=== PATIENT | female | born 1975 | race Caucasian/White ===

== ENCOUNTER 2017-09-26 17:59 | Emergency (ER) | END 2017-09-26 22:13 | disposition home or self-care (01) ==

== ENCOUNTER 2018-03-07 15:19 | Emergency (ER) | payer BC ==
[~2018-03-07] VITALS: Ht 177.8 cm; Wt 101.6 kg
[~2018-03-07 15:19] MED LIST: BECL8.7A5 IH; CARI350T PO; CEPH500C PO; GABA400C PO; IBUP-1542 PO; NITR-58 PO; NORT10CA3 PO; OMEP20TA42 PO; OXYC-279 PO; RANI300T PO; SULF-182 PO; TRAZ150T65 PO; VENL225T PO
[2018-03-07 15:28] VITALS: Ht 177.8 cm; Wt 101.6 kg
[2018-03-07] MEDS ORDERED: ONDANSETRON 4 MG INJ IV STA ×2 (17:37→19:27)
[2018-03-07] MEDS ORDERED: FAMOTIDINE 20 MG INJ IV STA (17:37)
[2018-03-07] MEDS ORDERED: SOD CHLORIDE 0.9% 1,000 ML IV STA ×2 (17:37→19:27)
--- NOTE | 2018-03-07 19:32 | ERD ---
ER Documentation Chief Complaint Chief Complaint Complains of vomiting x 3 days (NOMI KO MD) HPI This is a 42-year-old female that recently underwent a gastric bypass February 01, [address] [facility] by Dr. Wolf. The patient indicates that for the past 3 days she has been unable to tolerate oral intake. She states she has been taking small sips of liquid but is unable to be taking any solid foods or soft foods. Anytime she attempts to eat anything she experiences emesis nonbloody nonbilious. She has not experienced any diarrhea. She has a postoperative appointment with her surgeon in 24 hours. She had no fevers or shaking or chills. She is experiencing epigastric abdominal discomfort. She states it is a burning-like sensation. She has been experiencing flatulence with no constipation. The patient also indicates that she recently was diagnosed with a urinary tract infection was given 5 George of Macrobid. However she states she finished this 2 days ago with no improvement of her symptoms. She also indicates she was experiencing emesis during that time of her taking the antibiotics of is concerned that she did not adequately absorb the antibiotics. She has a history of insulin-dependent diabetes but has been able to take her insulin without any difficulty. Denies any polyuria polydipsia. (NOMI KO MD) ROS All systems reviewed and are negative except as per history of present illness. (NOMI KO MD) Medications Home Meds Active Scripts Cephalexin* (Cephalexin* Susp) 250 Mg/5 Ml Susp.recon, 10 ML PO Q8 for 7 Days Prov:NOMI KO MD 03/07/18 Metoclopramide* (Reglan*) 10 Mg Tablet, 10 MG PO Q6 PRN for NAUSEA AND/OR VOMITING, #20 TAB Prov:NOMI KO MD 03/07/18 Ondansetron (Ondansetron Odt) 4 Mg Tab.rapdis, 4 MG PO Q6H PRN for NAUSEA AND/OR VOMITING, #20 TAB Prov:NOMI KO MD 03/07/18 Nitrofurantoin Monohyd Macrocr* (Macrobid*) 100 Mg Capsr, 100 MG PO BID for 7 D ays, CAP Prov:RADHA FOSTER 09/26/17 Ibuprofen* (Motrin*) 600 Mg Tab, 600 MG PO Q6, #30 TAB Prov:RADHA FOSTER 09/26/17 Oxycodone HCl/Acetaminophen (Percocet 5-325 mg Tablet) 1 Each Tablet, 1 EACH PO Q6, #15 TAB Prov:RADHA FOSTER 09/26/17 Reported Medications Sulfamethoxazole-Trimethoprim* (Sulfamethoxazole-Trimethoprim* DS) 1 Tab Tablet, 1 TAB PO DAILY 03/14/11 Cephalexin* (Cephalexin*) 500 Mg Capsule, 500 MG PO QID 03/14/11 Venlafaxine Hcl* (Venlafaxine Hcl ER*) 225 Mg Tab.er.24, 225 MG PO DAILY 03/14/11 Omeprazole (Omeprazole) 20 Mg Tablet.dr, 20 MG PO DAILY 03/14/11 Ranitidine Hcl* (Ranitidine Hcl*) 300 Mg Tablet, 300 MG PO HS 03/14/11 Gabapentin* (Neurontin*) 400 Mg Capsule, 400 MG PO TID 03/14/11 Nortriptyline Hcl* (Pamelor*) 10 Mg Capsule, 10 MG PO DAILY 03/14/11 Beclomethasone Dip* (Qvar 80*) 7.3 Gm Inha, 7.3 GM IH BID prn 2 puffs 03/14/11 Carisoprodol* (Soma*) 350 Mg Tablet, 350 MG PO TID 09/16/10 Trazodone Hcl* (Trazodone Hcl*) 150 Mg Tablet, 150 MG PO DAILY 09/16/10 Allergies Allergies: Coded Allergies: No Known Allergy (Verified , 03/14/11) PMhx/Soc History of Surgery: Yes (BILAT KNEES ) Anesthesia Reaction: Yes Hx Neurological Disorder: No Hx Respiratory Disorders: Yes (ASTHMA) Hx Cardiac Disorders: No Hx Psychiatric Problems: No Hx Miscellaneous Medical Probl: Yes (acid reflux, lumbar radiculopathy,anxiety d/o) Hx Alcohol Use: No Hx Substance Use: No Hx Tobacco Use: No Smoking Status: Never smoker (NOMI KO MD) Physical Exam Vitals Vital Signs Date Temp Pulse Resp B/P (MAP) Pulse Ox O2 O2 Flow FiO2 Time Delivery Rate 03/07/18 98.0 56 18 118/73 100 Room Air 22:19 (88) 03/07/18 98.0 75 20 121/72 100 15:28 (88) (CHEY MONTGOMERY MD) Physical Exam Constitutional:Well-developed. Well-nourished. HEENT:Normocephalic. Atraumatic.Pupils were equal round reactive to light. Dry mucous membranes.No tonsillar exudates. Neck: No nuchal rigidity. No lymphadenopathy. No posterior cervical spine tenderness or step-offs. Respiratory: Not using accessory muscles of respiration.Lungs were clear to auscultation bilaterally. No rhonchi. No rales. No wheezing. Cardiovascular: Regular rate regular rhythm.No murmurs. No rubs were appreciated.S1, S2 normal. Distal pulses are palpable 2+ bilaterally. GI: Abdomen was soft. And epigastric tenderness. Surgical scars are present with no surrounding erythremia fluctuance or induration. Non Distended. No pulsatile abdominal masses or bruits. No rebound. No guarding. Bowel sounds were present and normal. Muscle skeletal: Full range of motion of both the upper and lower extremities bilaterally.Normal muscle tone.No assymetrical calf tenderness or swelling. Skin: No petechia, no purpura. No lesions on the palms or the soles of the feet. No maculopapular rash. NEURO: Patient was alert, awake, orientated x3.No facial droop. Gait observed and normal with no ataxia.Speech had regular rate and rhythm. No focal neurological deficits. (NOMI KO MD) Result Diagram: 03/07/18 1827 03/07/18 1858 Results 24 hrs Laboratory Tests Test 03/07/18 18:27 03/07/18 18:58 03/07/18 19:25 White Blood Count 6.5 10^3/ul Red Blood Count 4.44 10^6/ul Hemoglobin 13.0 g/dl Hematocrit 39.4 % Mean Corpuscular Volume 88.7 fl Mean Corpuscular Hemoglobin 29.3 pg Mean Corpuscular 33.0 g/dl Hemoglobin Concent Red Cell Distribution Width 13.5 % Platelet Count 189 10^3/UL Mean Platelet Volume 12.7 fl Immature Granulocytes % 0.200 % Neutrophils % 43.8 % Lymphocytes % 48.9 % Monocytes % 6.0 % Eosinophils % 0.8 % Basophils % 0.3 % Nucleated Red Blood Cells % 0.0 /100WBC Immature Granulocytes # 0.010 10^3/ul Neutrophils # 2.9 10^3/ul Lymphocytes # 3.2 10^3/ul Monocytes # 0.4 10^3/ul Eosinophils # 0.1 10^3/ul Basophils # 0.0 10^3/ul Nucleated Red Blood Cells # 0.0 10^3/ul Prothrombin Time 13.7 Sec Prothrombin Time Ratio 1.1 INR International 1.04 Normalized Ratio Activated Partial Thromboplast 29.7 Sec Time Sodium Level 140 mmol/L Potassium Level 4.0 mmol/L Chloride Level 111 mmol/L Carbon Dioxide Level 19 mmol/L Anion Gap 10 Blood Urea Nitrogen 10 mg/dl Creatinine 0.69 mg/dl Est Glomerular Filtrat > 60 mL/min Rate mL/min Glucose Level 90 mg/dl Calcium Level 9.4 mg/dl Total Bilirubin 0.5 mg/dl Direct Bilirubin 0.00 mg/dl Indirect Bilirubin 0.5 mg/dl Aspartate Amino 32 IU/L Transf (AST/SGOT) Alanine 30 IU/L Aminotransferase (ALT/SGPT) Alkaline Phosphatase 68 IU/L Total Protein 7.1 g/dl Albumin 3.9 g/dl Globulin 3.20 g/dl Albumin/Globulin Ratio 1.21 Amylase Level 47 U/L Lipase 77 U/L Urine Color RADHA Urine Clarity SLIGHTLY CLOUDY Urine pH 5.0 Urine Specific [place] 1.027 Urine Ketones 2+ mg/dL Urine Nitrite NEGATIVE mg/dL Urine Bilirubin NEGATIVE mg/dL Urine Urobilinogen 1+ mg/dL Urine Leukocyte Esterase NEGATIVE Ignacio/ul Urine Microscopic RBC 1 /HPF Urine Microscopic WBC 7 /HPF Urine Squamous Epithelial Cells MODERATE /HPF Urine Bacteria FEW /HPF Urine Mucus MODERATE /HPF Urine Hemoglobin 2+ mg/dL Urine Glucose NEGATIVE mg/dL Urine Total Protein 2+ mg/dl Current Medications Medications Dose Sig/Barbie Start Time Status Last (Trade) Ordered Route PRN Stop Time Admin Dose Reason Admin Sodium 1,000 ml @ Q1H STAT 03/07/18 DC 03/07/18 Chloride 1,000 mls/hr IV 17:37 03/07/18 18:41 18:36 Ondansetron 4 mg ONCE STAT 03/07/18 DC 03/07/18 HCl (Zofran IV 17:37 03/07/18 18:41 Inj) 17:39 Famotidine 20 mg ONCE STAT 03/07/18 DC 03/07/18 (Pepcid Iv) IV 17:37 03/07/18 18:41 17:39 Sodium 1,000 ml @ Q1H STAT 03/07/18 DC 03/07/18 Chloride 1,000 mls/hr IV 19:27 03/07/18 19:51 20:26 Ondansetron 4 mg ONCE STAT 03/07/18 DC 03/07/18 HCl (Zofran IV 19:27 03/07/18 19:51 Inj) 19:40 Ceftriaxone 50 ml @ ONCE ONCE 03/07/18 DC 03/07/18 Sodium 100 mls/hr IVPB 20:00 03/07/18 19:51 20:29 IV Flush 10 ml STK-MED 03/07/18 DC (NS 10 ml) ONCE .ROUTE 20:30 03/07/18 20:31 Sodium 100 ml @ ud STK-MED 03/07/18 DC Chloride ONCE .ROUTE 20:30 03/07/18 20:31 Iohexol 150 ml STK-MED 03/07/18 DC (Omnipaque ONCE .ROUTE 20:30 03/07/18 300mg/ ml) 20:31 (CHEY MONTGOMERY MD) Procedures/MDM This patient presented to the emergency department with abdominal pain and was seen and evaluated by myself. My differential diagnosis included but was not limited to abdominal aortic aneurysm, appendicitis, pancreatitis, perforated peptic ulcer, perforated viscus, Boerhaaves syndrome or visceral pain such as diverticulitis, DKA, esophagitis, hepatitis or bowel obstruction. The patient was placed on a monitor worker, continuous pulse oximetry, and IV access was established by nursing staff. The patient was given IV fluids Zofran and was refusing analgesic medication was also given antacids. Given the patiens localization of pain and recent surgical intervention I do feel is necessary to obtain a CT scan of the abdomen to rule out for postoperative abscess or obstruction. The CT scan of the abdomen showed no infectious process. I did feel the patient's symptoms were likely result of postoperative pain and she will be following up with her surgeon in 24 hours. The patient also had a significant urinary tract infection and was given IV ceftriaxone. (NOMI KO MD) I received signout from Dr. Webber on this patient, pending her her CT scan and her labs. Her labs showed no evidence of DKA, her CT scan showed no acute intra-abdominal findings, gallstones were noted, I spoke with the patient about this, she has known gallstones, and her pain appears to be more along her flanks, she has negative Lyon sign. I offered her admission for pain control and nausea control, however she felt comfortable with discharge home, at discharge she was in no acute distress (CHEY MONTGOMERY MD) Departure Diagnosis: Primary Impression: Postoperative abdominal pain Additional Impressions: Urinary tract infection Urinary tract infection type: acute cystitis Hematuria presence: without hematuria Qualified Codes: N30.00 - Acute cystitis without hematuria Dehydration Condition: Fair NOMI KO MD Mar 07, 2018 19:32 CHEY MONTGOMERY MD Mar 07, 2018 22:05
[2018-03-07] MEDS ORDERED: ONDA4TAB14 PO (19:33)
[2018-03-07] MEDS ORDERED: METO10TA92 PO (19:38)
[2018-03-07] MEDS ORDERED: CEPH250S33 PO (19:38)
[2018-03-07] MEDS ORDERED: CEFTRIAXONE 1 GM/50 ML (PMX) 50 ML IVPB ONE (20:00)
[2018-03-07] MEDS ORDERED: IOHEXOL 300MG/ML 150 ML BTL ONE (20:30)
[2018-03-07] MEDS ORDERED: SOD CHLORIDE 0.9% 100 ML ONE (20:30)
[2018-03-07 22:19] VITALS: BP 118/73; PULSE 56; RESP 18
== END 2018-03-07 22:21 | disposition home or self-care (01) ==
LOC: FTE 15:19
DX: G89.18 Other acute postprocedural pain (principal); N30.00 Acute cystitis without hematuria; E86.0 Dehydration; J45.909 Unspecified asthma, uncomplicated; R10.9 Unspecified abdominal pain
CPT/HCPCS: 74177; 80053; 81001; 82150; 83690; 85025; 85610; 85730; 87086; 96361; 96374; 96375; 96376; 99285; J0696; J2405; J7030; Q9967; Z7610